=== PATIENT | female | born 1980 | race Two or more races ===

== ENCOUNTER 2019-09-28 08:23 | Outpatient (CLI) | payer OTHER ==
[~2019-09-28] VITALS: Ht 162.6 cm; Wt 49.9 kg
== END 2019-09-28 11:47 | disposition home or self-care (01) ==
LOC: EDBD 08:23 → OFIC 805 08:23
PROVIDERS: ATTEND Otolaryngology
DX: R22.1 Localized swelling, mass and lump, neck (principal)

== ENCOUNTER 2019-09-28 12:24 | Outpatient (CLI) | payer OTHER | END 2019-09-28 12:40 | disposition home or self-care (01) | LOC: EDBD 12:24 → SONOGRAMA 12:24 | PROVIDERS: ATTEND Otolaryngology | DX: R22.1 Localized swelling, mass and lump, neck (principal) ==

== ENCOUNTER 2019-10-18 10:02 | Outpatient (CLI) | payer OTHER | END 2019-10-18 12:21 | disposition home or self-care (01) | LOC: OFIC 805 10:02 | PROVIDERS: ATTEND Otolaryngology | DX: R22.1 Localized swelling, mass and lump, neck (principal) ==

== ENCOUNTER 2019-10-28 08:42 | Outpatient (CLI) | payer OTHER | END 2019-10-28 08:50 | disposition home or self-care (01) | LOC: SONOGRAMA 08:42 | PROVIDERS: ATTEND Pathology Anatomic Pathology & Clinical Pathology | DX: R22.1 Localized swelling, mass and lump, neck (principal) ==

== ENCOUNTER 2019-11-23 07:44 | Outpatient (CLI) | payer OTHER | END 2019-11-23 16:22 | disposition home or self-care (01) | LOC: OFIC 805 07:44 | PROVIDERS: ATTEND Otolaryngology | DX: R22.1 Localized swelling, mass and lump, neck (principal) ==

== ENCOUNTER 2020-03-10 16:06 | Outpatient (CLI) | payer OTHER | END 2020-03-10 16:19 | disposition home or self-care (01) | LOC: RAD 16:06 | DX: M25.562 Pain in left knee (principal) ==

== ENCOUNTER 2020-08-03 08:23 | Outpatient (CLI) | payer OTHER | END 2020-08-03 08:30 | disposition home or self-care (01) | LOC: LAB 08:23 | PROVIDERS: ATTEND General Practice | DX: Z13.6 Encounter for screening for cardiovascular disorders (principal); Z13.39 Encounter for screening examination for other mental health and behavioral disorders ==

== ENCOUNTER 2020-08-11 08:05 | Outpatient (CLI) | payer OTHER | END 2020-08-11 08:17 | disposition home or self-care (01) | LOC: RAD 08:05 | PROVIDERS: ATTEND General Practice | DX: R07.89 Other chest pain (principal); R05 Cough ==

== ENCOUNTER 2022-03-25 08:44 | Outpatient (CLI) | payer OTHER | END 2022-03-25 08:59 | disposition home or self-care (01) | LOC: RAD 08:44 | PROVIDERS: ATTEND Internal Medicine | DX: J06.9 Acute upper respiratory infection, unspecified (principal); R05.1 Acute cough ==

== ENCOUNTER 2023-12-04 10:44 | Outpatient (CLI) | payer OTHER | END 2023-12-04 10:47 | disposition home or self-care (01) | LOC: RAD 10:44 | PROVIDERS: ATTEND Internal Medicine | DX: M79.642 Pain in left hand (principal) ==

== ENCOUNTER → 2024-03-15 09:04 | Outpatient (CLI) | payer OTHER ==
[2024-03-16 10:10] LABS: PROLACTIN 11.6 ng/mL (4.8-33.4)
== END | disposition home or self-care (01) ==
LOC: LAB 08:48
PROVIDERS: ATTEND Specialist
DX: N91.2 Amenorrhea, unspecified (principal); N95.0 Postmenopausal bleeding

== ENCOUNTER 2024-03-15 15:34 | Outpatient (CLI) | payer OTHER | END 2024-03-15 15:41 | disposition home or self-care (01) | LOC: MAMO-SONO 15:34 | PROVIDERS: ATTEND Specialist | DX: N63.0 Unspecified lump in unspecified breast (principal); Z12.31 Encounter for screening mammogram for malignant neoplasm of breast; D25.9 Leiomyoma of uterus, unspecified ==